=== PATIENT | female | born 1990 | race Caucasian/White ===

== ENCOUNTER 2017-01-26 19:04 | Emergency (ER) | payer BC | END 2017-01-26 20:56 | disposition left against medical advice (07) | LOC: UCCORT 19:04 | DX: H57.8 Other specified disorders of eye and adnexa (principal); J02.9 Acute pharyngitis, unspecified; Z53.21 Procedure and treatment not carried out due to patient leaving prior to being seen by health care provider ==

== ENCOUNTER 2017-03-15 09:39 | Emergency (ER) | payer BC ==
[2017-03-15 11:37] VITALS: BP 103/63
--- NOTE | 2017-03-15 12:16 | UC ---
Throat Pain/Nasal [place] HPI - HPI Summary HPI Summary: ST with chills, aches, fatigue starting 2 nights ago. 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 Had tonsillectomy as child because of recurrent strep. Denies vomiting and rash. - History of Current Complaint Chief Complaint: UCGeneralIllness Stated Complaint: THROAT PAIN Time Seen by Provider: 03/15/17 12:02 Hx Obtained From: Patient Hx Last Menstrual Period: 03/07/17 ?: No Onset/Duration: Gradual Onset, Lasting Days Severity: Moderate Cough: None Associated Signs & Symptoms: Negative: Sinus Discomfort, Nasal Discharge, Fever , Vomiting - Allergies/Home Medications Allergies/Adverse Reactions: Allergies Allergy/AdvReac Type Severity Reaction Status Date / Time Amoxicillin Allergy Hives Verified 03/15/17 11:12 Sulfa Antibiotics AdvReac Vomiting Verified 03/15/17 11:13 PMH/Surg Hx/FS Hx/Imm Hx - Surgical History Surgical History: Yes Surgery Procedure, Year, and Place: tonsils childhood - Family History Known Family History: Negative: Blood Disorder - Social History Occupation: Employed Full-time Alcohol Use: Rare Substance Use Type: None Smoking Status (MU): Never Smoked Tobacco - Immunization History Most Recent Influenza Vaccination: 2016 Review of Systems Constitutional: Chills Skin: Negative Eyes: Negative ENT: Sore Throat Respiratory: Negative Cardiovascular: Negative Gastrointestinal: Negative Genitourinary: Negative Motor: Negative Neurovascular: Negative Musculoskeletal: Negative Neurological: Negative Psychological: Negative All Other Systems Reviewed And Are Negative: Yes Physical Exam Triage Information Reviewed: Yes Appearance: Well-Nourished, Pain Distress - mild with swallowing Vital Signs: Initial Vital Signs Temp 98.9 F 03/15/17 11:33 Pulse 76 03/15/17 11:33 Resp 18 03/15/17 11:33 BP 103/63 03/15/17 11:33 Pulse Ox 100 03/15/17 11:33 Vital Signs Reviewed: Yes Eye Exam: Normal Eyes: Positive: Conjunctiva Clear ENT: Positive: Hearing grossly normal, Pharyngeal erythema, TMs normal. Negative: Tonsillar swelling - s/p tonsillectomy Dental Exam: Normal Neck exam: Normal Neck: Positive: Supple, Nontender, No Lymphadenopathy Respiratory Exam: Normal Respiratory: Positive: Chest non-tender, Lungs clear, Normal breath sounds, No respiratory distress, No accessory muscle use Cardiovascular Exam: Normal Cardiovascular: Positive: RRR, No Murmur Musculoskeletal Exam: Normal Neurological Exam: Normal Neurological: Positive: Alert Psychological Exam: Normal Skin Exam: Normal Throat Pain/Nasal Course/Dx - Course Course Of Treatment: Discussed clinical diagnosis of strep, pt is in agreement and does not desire RST testing today. - Differential Dx/Diagnosis Provider Diagnoses: strep pharyngitis Discharge - Discharge Plan Condition: Stable Disposition: HOME Prescriptions: Cephalexin CAP* [Keflex 500 CAP*] 500 mg PO TID #30 cap Patient Education Materials: Strep Throat (ED) Forms: *Work Release Referrals: Sunitha LIM,Niru Escoto [Primary Care Provider] - If Needed Additional Instructions: Return or see your primary care provider if you do not have full resolution of symptoms within the next week. Come back at any time if you have difficulty with breathing or swallowing.
== END 2017-03-15 12:20 | disposition home or self-care (01) ==
LOC: UCEAST 09:39
DX: J02.0 Streptococcal pharyngitis (principal); Z88.3 Allergy status to other anti-infective agents
CPT/HCPCS: 99212; G0463